=== PATIENT | female | born 1990 | race Caucasian/White ===

== ENCOUNTER → 2017-07-02 | Outpatient (REF) ==
[2017-07-02 19:39] LABS: THYROID STIMULATING HORMONE 1.86 uIU/mL (0.465-4.680)
== END ==
LOC: ZLAB.WCH 18:24
PROVIDERS: Nurse Practitioner Family
DX: Z01.89 Encounter for other specified special examinations (principal)

== ENCOUNTER 2018-09-01 11:46 | Outpatient (CLI) | payer BC ==
[~2018-09-01] VITALS: Ht 162.6 cm; Wt 112.7 kg
[~2018-09-01 11:46] MED LIST: BIRTH CONTROL; CEPHALEXIN500 M1 PO; LORTAB 5/500 501 TAB PO; NAPROSYN500 MG PO
--- NOTE | 2018-09-01 11:58 | NUR ---
Pt arrives on unit ambulatory with spouse. Pt called over from office for serial BP and clean catch UA. States swelling in bilateral extremities. Denies other preeclampsia s/s. Changed into clean gown. EFM and toco applied. Admission assessment completed. Denies vaginal bleeding, LOF, regular ctx and reports GFM. Pt updated on POC. Call light within reach. Bed locked in low position. No questions or concerns at this time.
[2018-09-01] MEDS ORDERED: PRENATAL MVI (12:33)
[2018-09-01] MEDS ORDERED: OSCAL 500 TAB500 MG PO (12:34)
[2018-09-01] MEDS ORDERED: EFFEXOR 75M75 MG/TAB PO (12:35)
[2018-09-01] MEDS ORDERED: UNISOM25 MG PO (12:36)
[2018-09-01 12:51] LABS: COLLECTION METHOD CLEAN CATCH
[2018-09-01 13:00] VITALS: BP 133/87; PULSE 99; TEMP 98.2
[2018-09-01 13:21] LABS: PH 8 (5-8); SQUAMOUS EPITHELIAL 0-2 /hpf; URINE APPEARANCE Clear; URINE BACTERIA Many /hpf; URINE BILIRUBIN Negative (NEGATIVE); URINE BLOOD Negative (NEGATIVE); URINE COLOR Straw; URINE GLUCOSE Negative (NEGATIVE); URINE KETONE Negative (NEGATIVE); URINE LEUKOCYTE ESTERASE Negative (NEGATIVE); URINE NITRATE Negative (NEGATIVE); URINE PROTEIN(semi-quant) Negative (NEGATIVE); URINE RBC 0-2 /hpf; URINE UROBILINOGEN Negative (NEGATIVE)
[2018-09-01 13:30] VITALS: BP 136/78; PULSE 92
[2018-09-01 16:45] VITALS: BP 130/82
[2018-09-01 19:00] VITALS: BP 145/89; PULSE 98; TEMP 98.3
[2018-09-01 21:00] VITALS: BP 151/95; PULSE 109
[2018-09-01 23:00] VITALS: BP 123/65; PULSE 80; TEMP 97.6
--- NOTE | 2018-09-02 02:20 | NUR ---
0220 STATES WOKE UP ABOUT AN HOUR AGO FEELING CRAMPS ABOUT EVERY 10 MINUTES LASTING 30 SECONDS. PITCHER OF WATER GIVEN TO DRINK AND ENCOURAGED TO EMPTY BLADDER AND CHANGE POSITION IN BED.
[2018-09-02 03:00] VITALS: BP 153/91; PULSE 81; TEMP 97.8
--- NOTE | 2018-09-02 03:00 | NUR ---
0300 CRAMPS BECOMING FARTHER APART. TRYING TO REST
[2018-09-02 05:00] VITALS: BP 142/84; PULSE 92
[2018-09-02 07:20] VITALS: BP 128/68; PULSE 95; TEMP 98.6
[2018-09-02 07:30] VITALS: BP 135/70; PULSE 91
[2018-09-02 07:40] VITALS: BP 126/68; PULSE 88
[2018-09-02] MEDS ORDERED: K-TAB20 PO (09:10)
== END 2018-09-02 09:50 | disposition home or self-care (01) ==
LOC: LDRO 11:46 → LDR 12:00 → OB 13:30 → LDRO 09-02 09:50
PROVIDERS: Obstetrics & Gynecology
DX: O99.89 Other specified diseases and conditions complicating pregnancy, childbirth and the puerperium (principal); M79.89 Other specified soft tissue disorders; R51 Headache; Z3A.36 36 weeks gestation of pregnancy
CPT/HCPCS: OP; G0378

== ENCOUNTER 2018-09-03 11:06 | Inpatient (IN) | payer BC ==
[2018-09-03] VITALS (24 sets, daily range): BP systolic 116–182; BP diastolic 66–116; PULSE 89–118; TEMP 97.8–98.9
[~2018-09-03] VITALS: Ht 161.3 cm; Wt 112.7 kg
[~2018-09-03 11:06] MED LIST changes: +EFFEXOR 75M75 MG/TAB PO; +K-TAB20 PO; +OSCAL 500 TAB500 MG PO; +PRENATAL MVI; +UNISOM25 MG PO
--- NOTE | 2018-09-03 11:30 | NUR ---
G1 at 37.1 weeks gestation to room 210 for . She was seen in the office today with increased blood pressure, swelling, and a consistent headache. Patient changed into gown. Wedged left in bed. EFMs explained and applied. FHR 130 bpm and reactive. No CTX per toco or patient reports. Blood pressure: 166/105. Swelling noted to bilateral lower feet, ankles, and calves. Plan of care reviewed with patient and spouse.
[2018-09-03 12:09] LABS: BASO % 0.2 % (0.0-2.0); EOS % 0.5 % (0-4.0); GRAN # 4.9 (1.4-6.5); GRAN % 74.9 % (42.2-75.2); HEMATOCRIT 32.5 % (37.0-47.0); HEMOGLOBIN 10.7 g/dl (12.5-16.0); LYMPH # 1.1 (1.2-3.4); LYMPH % 16.1 % (20.0-51.0); MEAN CELL VOLUME 87 fl (80.0-100.0); MEAN CORPUSCULAR HEMOGLOBIN 29 pg (27.0-31.0); MEAN CORPUSCULAR HGB CONC 33 g/dl (33.0-37.0); MEAN PLATELET VOLUME 11.7 fl (7.4-10.4); MONO # 0.5 (0.1-0.6); PLATELET COUNT 207 K/mm3 (130-400); RED BLOOD COUNT 3.75 M/mm3 (4.10-5.30); REDCELL DISTRIBUTION WIDTH-CV 12.8 % (11.5-14.5)
[2018-09-03 12:10] LABS: BILIRUBIN,TOTAL 0.3 mg/dL (0.0-1.0); CALCIUM 8.6 mg/dL (8.4-10.2); CREATININE, serum 0.63 (0.52-1.25); POTASSIUM 3.1 mmol/L (3.4-5.0); TOTAL PROTEIN 5.8 gm/dL (6.4-8.2)
[2018-09-03 12:23] LABS: COLLECTION METHOD CLEAN CATCH
[2018-09-03 12:31] LABS: PH 8 (5-8); SQUAMOUS EPITHELIAL 0-2 /hpf; URINE APPEARANCE Clear; URINE BACTERIA None Seen /hpf; URINE BILIRUBIN Negative (NEGATIVE); URINE BLOOD 1+ (NEGATIVE); URINE COLOR Straw; URINE GLUCOSE Negative (NEGATIVE); URINE KETONE Negative (NEGATIVE); URINE LEUKOCYTE ESTERASE Negative (NEGATIVE); URINE NITRATE Negative (NEGATIVE); URINE PROTEIN(semi-quant) Negative (NEGATIVE); URINE RBC 0-2 /hpf; URINE UROBILINOGEN Negative (NEGATIVE); URINE WBC 0-2 /hpf
[2018-09-04 02:10] VITALS: BP 130/76; PULSE 93
[2018-09-04 05:30] VITALS: BP 128/74; PULSE 96; TEMP 98.8
[2018-09-04 07:46] LABS: COLLECTION METHOD CLEAN CATCH
[2018-09-04 07:51] LABS: MUCOUS Present /lpf; PH 6 (5-8); SQUAMOUS EPITHELIAL 0-2 /hpf; URINE APPEARANCE Hazy; URINE BACTERIA None Seen /hpf; URINE BILIRUBIN Negative (NEGATIVE); URINE BLOOD 3+ (NEGATIVE); URINE COLOR Yellow; URINE GLUCOSE Negative (NEGATIVE); URINE KETONE Negative (NEGATIVE); URINE LEUKOCYTE ESTERASE Negative (NEGATIVE); URINE NITRATE Negative (NEGATIVE); URINE PROTEIN(semi-quant) Negative (NEGATIVE); URINE RBC >50 /hpf
[2018-09-04 08:35] VITALS: BP 143/87; PULSE 86; TEMP 97.4
[2018-09-04 09:08] LABS: BASO % 0.2 % (0.0-2.0); EOS % 0.2 % (0-4.0); GRAN # 7.5 (1.4-6.5); GRAN % 78.6 % (42.2-75.2); HEMATOCRIT 30.1 % (37.0-47.0); HEMOGLOBIN 9.9 g/dl (12.5-16.0); LYMPH # 1.3 (1.2-3.4); LYMPH % 13.4 % (20.0-51.0); MEAN CELL VOLUME 88 fl (80.0-100.0); MEAN CORPUSCULAR HEMOGLOBIN 29 pg (27.0-31.0); MEAN CORPUSCULAR HGB CONC 33 g/dl (33.0-37.0); MEAN PLATELET VOLUME 11.4 fl (7.4-10.4); MONO # 0.7 (0.1-0.6); MONO % 7.1 % (1.7-9.3); PLATELET COUNT 213 K/mm3 (130-400); RED BLOOD COUNT 3.42 M/mm3 (4.10-5.30); REDCELL DISTRIBUTION WIDTH-CV 13.1 % (11.5-14.5)
[2018-09-04 09:20] LABS: ALBUMIN 2.9 gm/dL (3.5-5.0); BILIRUBIN,TOTAL 0.2 mg/dL (0.0-1.0); CALCIUM 8.4 mg/dL (8.4-10.2); CREATININE, serum 0.83 (0.52-1.25); TOTAL PROTEIN 5.6 gm/dL (6.4-8.2)
[2018-09-04 11:10] VITALS: BP 137/77; PULSE 93; TEMP 97.3
[2018-09-04 16:05] VITALS: BP 135/77; PULSE 89; TEMP 97.8
[2018-09-04 21:30] VITALS: BP 145/88; PULSE 101; TEMP 98.7
[2018-09-05 02:45] VITALS: BP 127/63; PULSE 91; TEMP 98.1
[2018-09-05 08:50] VITALS: BP 147/83; PULSE 99; TEMP 98.7
[2018-09-05 09:46] LABS: ALBUMIN 2.7 gm/dL (3.5-5.0); BILIRUBIN,TOTAL 0.1 mg/dL (0.0-1.0); CALCIUM 8.2 mg/dL (8.4-10.2); CREATININE, serum 0.87 (0.52-1.25); POTASSIUM 3.4 mmol/L (3.4-5.0); TOTAL PROTEIN 5.2 gm/dL (6.4-8.2)
--- NOTE | 2018-09-05 11:00 | NUR ---
Pt requesting to start using breast pump. Breast pump instructions given, pt verbalizses understanding. Will pump every 3 hours if infant not latching well.
[2018-09-05 17:10] VITALS: BP 146/78; PULSE 88; TEMP 98.2
[2018-09-05 21:00] VITALS: BP 131/71; PULSE 96; TEMP 98.4
[2018-09-06 10:20] VITALS: BP 151/99; PULSE 106; TEMP 98.5
[2018-09-06] MEDS ORDERED: TRANDATE 200MG200 MG PO (13:38)
[2018-09-06] MEDS ORDERED: IBU600 MG PO (13:38)
[2018-09-06] MEDS ORDERED: PERCOCET 325 MG1 TA2 PO (13:38)
== END 2018-09-06 16:12 | disposition home or self-care (01) | DRG 788 ==
LOC: OB 11:06
PROVIDERS: Obstetrics & Gynecology; ADMIT Obstetrics & Gynecology
PROC: 10D00Z1 Extraction of Products of Conception, Low, Open Approach (ICD-10-PCS; principal; 2018-09-03)
DX: O14.14 Severe pre-eclampsia complicating childbirth (principal); Z3A.37 37 weeks gestation of pregnancy; Z37.0 Single live birth; E87.6 Hypokalemia; O99.214 Obesity complicating childbirth; O99.344 Other mental disorders complicating childbirth; F41.9 Anxiety disorder, unspecified; O90.81 Anemia of the puerperium; D64.9 Anemia, unspecified
CPT/HCPCS: J0360; J0690; J1885; J2405; J2590; J7120